=== PATIENT | male | born 1995 | race Caucasian/White ===

== ENCOUNTER 2019-11-23 10:41 | Emergency (ER) | payer SELFPAY ==
[~2019-11-23] VITALS: Ht 167.6 cm; Wt 140.0 kg
[2019-11-23 11:51] VITALS: BP 157/92
[2019-11-23] MEDS ORDERED: BACITRACIN ZINC OINT UDPKT TOP ONE (12:45)
[2019-11-23] MEDS ORDERED: IBUPROFEN 600MG TABLET PO ONE (12:45)
[2019-11-23] MEDS ORDERED: TETANUS, DIPHTHERIA, PERTUSSIS VAC/PF 0.5ML (>7YR OLD) IM ONE (12:45)
[2019-11-23] MEDS ORDERED: LIDOCAINE HCL/PF 1% 10 MG/ML 5ML VIAL IJ ONE (12:45)
== END 2019-11-23 14:34 | disposition home or self-care (01) ==
LOC: ER 10:41
DX: S61.211A Laceration without foreign body of left index finger without damage to nail, initial encounter (principal); X58.XXXA Exposure to other specified factors, initial encounter; Y93.89 Activity, other specified; Y92.89 Other specified places as the place of occurrence of the external cause; Y99.8 Other external cause status
CPT/HCPCS: 73140; 90471; 90715; 99283; J3490

== ENCOUNTER 2019-11-26 12:51 | Emergency (ER) | payer SELFPAY ==
[~2019-11-26] VITALS: Ht 172.7 cm; Wt 110.0 kg
[2019-11-26 13:34] VITALS: BP 128/78
== END 2019-11-26 14:15 | disposition home or self-care (01) ==
LOC: ER 12:51
DX: Z48.00 Encounter for change or removal of nonsurgical wound dressing (principal)
CPT/HCPCS: 99281

== ENCOUNTER 2019-12-11 13:00 | Emergency (ER) | payer OTHER ==
[~2019-12-11] VITALS: Ht 167.6 cm; Wt 86.0 kg
[2019-12-11 13:32] VITALS: BP 140/84
== END 2019-12-11 16:35 | disposition left against medical advice (07) ==
LOC: ER 13:00
DX: Z48.02 Encounter for removal of sutures (principal); Z53.21 Procedure and treatment not carried out due to patient leaving prior to being seen by health care provider